=== PATIENT | female | born 2000 | race Caucasian/White ===

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

== ENCOUNTER → 2018-10-25 | Outpatient (REF) | payer OTHER ==
[2018-10-25 14:54] LABS: HEMATOCRIT 44.9 % (36.0-47.0)
[2018-10-25 15:29] LABS: PERCENT SATURATION 23.4 % (13.2-45.0)
== END ==
LOC: M LAB REF 12:46
PROVIDERS: ATTEND Nurse Practitioner Adult Health
DX: D50.9 Iron deficiency anemia, unspecified (principal)

== ENCOUNTER → 2019-10-07 | Outpatient (CLI) | payer OTHER ==
[2019-10-07 10:45] LABS: ALBUMIN 4.1 GM/DL (3.2-5.2); ALT/SGPT 25 U/L (12-78); BILIRUBIN,TOTAL 0.3 MG/DL (0.2-1.0); BLOOD UREA NITROGEN 17 MG/DL (7-18); CALCIUM LEVEL 8.7 MG/DL (8.5-10.1); CARBON DIOXIDE LEVEL 28 MEQ/L (21-32); CHLORIDE LEVEL 107 MEQ/L (98-107); CREATININE FOR GFR 0.84 MG/DL (0.55-1.30); GLOMERULAR FILTRATION RATE > 60.0 (>60); GLUCOSE, FASTING 90 MG/DL (70-100); POTASSIUM SERUM 4.4 MEQ/L (3.5-5.1); SODIUM LEVEL 140 MEQ/L (136-145); THYROXINE (T4) 7.9 UG/DL (4.5-12.0); TOTAL PROTEIN 7.4 GM/DL (6.4-8.2)
[2019-10-07 10:47] LABS: LUTEINIZING HORMONE 5.8 mIU/mL
[2019-10-07 10:48] LABS: FOLLICLE STIMULATING HORMONE 7.4 mIU/mL
[2019-11-04 14:44] LABS: DEHYDROEPIANDROSTERONE UNCONJ 251 ng/dL (31-701); TESTOSTERONE FREE (DIRECT) 0.9 pg/mL (0.0-4.2)
== END ==
LOC: M LAB 09:17
PROVIDERS: ATTEND Nurse Practitioner Family
DX: L70.0 Acne vulgaris (principal)

== ENCOUNTER → 2020-12-18 | Outpatient (REF) | payer OTHER | LOC: M LAB REF 16:11 | PROVIDERS: ATTEND Registered Nurse | DX: R10.9 Unspecified abdominal pain (principal) ==